=== PATIENT | male | born 1965 | race American Indian/Alaskan Native ===

== ENCOUNTER 2019-11-19 11:06 | Emergency (ER) | payer SELFPAY ==
[2019-11-19] MEDS ORDERED: ASPIRIN 81 MG TAB CHEW PO ONE (12:10)
[2019-11-19] MEDS ORDERED: cloNIDine 0.1 MG TAB PO ONE (12:26)
--- NOTE | 2019-11-19 12:31 | Emergency Department Report ---
<DOUGLAS SCHNEIDER - Last Filed: 11/19/19 16:33> ED Chest Pain HPI - General Chief Complaint: Chest Pain Stated Complaint: CP/HEADACHE Time Seen by Provider: 11/19/19 12:10 - Related Data Previous Rx's Medication Instructions Recorded Last Taken Type amLODIPine 10 mg PO DAILY #30 tab 11/19/19 Unknown Rx Allergies Allergy/AdvReac Type Severity Reaction Status Date / Time No Known Allergies Allergy Unverified 11/19/19 11:10 ED Past Medical Hx - Medications Home Medications: Home Medications Medication Instructions Recorded Confirmed Last Taken Type amLODIPine 10 mg PO DAILY #30 tab 11/19/19 Unknown Rx ED Course - Reevaluation(s) Reevaluation #1: 11/19/19 16:33 Patient's repeat potassium of greater than 3. Patient is now stable for discharge. ED Medical Decision Making - Lab Data Result diagrams: 11/19/19 12:15 11/19/19 15:38 ED Disposition Clinical Impression: Chest pain, Malignant hypertension, Acute hypokalemia Disposition: DC-01 TO HOME OR SELFCARE Is pt being admited?: No Does the pt Need Aspirin: No Condition: Stable Instructions: Chest Pain (ED), Hypertension (ED) Prescriptions: amLODIPine 10 mg PO DAILY #30 tab Referrals: PRIMARY CARE, [Primary Care Provider] - 3-5 Days [facility] [Provider Group] - 3-5 Days Time of Disposition: 16:34 <MIKAYLA DECKER - Last Filed: 11/20/19 12:04> ED Chest Pain HPI - General Source: patient Mode of arrival: Ambulatory Limitations: No Limitations - History of Present Illness Initial Comments: Patient is 53 years old male with history of hypertension, noncompliant with his medication. Patient stated that he recently moved from [place] and he does not have a primary care physician here yet. Patient presented to the ER complaining of left-sided chest pain started probably 4 to 5 days ago. Patient stated that his chest pain is mainly at night and when he checked his blood pressure to be high. He also complaining of headache however he denied any neck pain, weakness numbness or tingling sensation. No bowel or bladder incontinence. No ataxia, visual abnormalities or speech problem. MD Complaint: chest pain -: days(s) (3) Onset: during rest Pain Location: substernal Pain Radiation: none Severity: moderate Quality: aching Consistency: intermittent Heart Score - HEART Score History: Slightly suspicious EKG: Non-specific Age: 45-65 Risk factors: 1-2 risk factors Troponin: < normal limit HEART Score: 3 - Critical Actions Critical Actions: 0-3 pts:0.9-1.7%risk of adverse cardiac event.Candidate for discharge ED Review of Systems ROS: Stated complaint: CP/HEADACHE Other details as noted in HPI Comment: All other systems reviewed and negative Constitutional: denies: chills, fever Respiratory: denies: cough, shortness of breath, SOB with exertion Cardiovascular: chest pain Gastrointestinal: denies: abdominal pain, nausea, vomiting, diarrhea, constipation, hematemesis, melena, hematochezia Musculoskeletal: denies: back pain Neurological: denies: headache, weakness, numbness, paresthesias, confusion, abnormal gait, vertigo ED Past Medical Hx - Past Medical History Previous Medical History?: Yes Hx Hypertension: Yes - Surgical History Past Surgical History?: No - Social History Smoking Status: Never Smoker Substance Use Type: None ED Physical Exam - General Limitations: No Limitations General appearance: alert, in no apparent distress - Head Head exam: Present: atraumatic, normocephalic, normal inspection - Eye Eye exam: Present: normal appearance - ENT ENT exam: Present: normal exam, normal orophraynx, mucous membranes moist, TM's normal bilaterally - Neck Neck exam: Present: normal inspection, full ROM. Absent: tenderness, meningismus, lymphadenopathy, thyromegaly - Respiratory Respiratory exam: Present: normal lung sounds bilaterally - Cardiovascular Cardiovascular Exam: Present: regular rate, normal rhythm, normal heart sounds - GI/Abdominal GI/Abdominal exam: Present: soft, normal bowel sounds. Absent: distended, tenderness, guarding, rebound, rigid, organomegaly, mass, bruit, pulsatile mass, hernia - Extremities Exam Extremities exam: Present: normal inspection, full ROM, normal capillary refill. Absent: tenderness, pedal edema, joint swelling, calf tenderness - Back Exam Back exam: Present: normal inspection, full ROM. Absent: CVA tenderness (R), CVA tenderness (L) - Neurological Exam Neurological exam: Present: alert, oriented X3, CN II-XII intact, normal gait, reflexes normal. Absent: motor sensory deficit - Psychiatric Psychiatric exam: Present: normal mood - Skin Skin exam: Present: warm, intact, normal color ED Course Vital Signs 11/19/19 11/19/19 11/19/19 12:06 15:35 16:41 Pulse Rate 84 85 Respiratory 16 16 16 Rate Blood Pressure 181/117 173/112 165/105 [Left] O2 Sat by Pulse 96 96 96 Oximetry YONIS score - Yonis Score Age > 65: (0) No Aspirin use within the Past 7 Days: (0) No 3 or more CAD Risk Factors: (0) No 2 or more Angina events in past 24 hrs: (0) No Known CAD with more than 50% Stenosis: (0) No Elevated Cardiac Markers: (0) No ST Deviation Greater than 0.5mm: (0) No YONIS Score: 0 ED Medical Decision Making - Lab Data Result diagrams: 11/19/19 12:15 11/19/19 15:38 - EKG Data -: EKG Interpreted by Me EKG shows normal: sinus rhythm Rate: normal - EKG Data Interpretation: no acute changes - Radiology Data Radiology results: report reviewed - Medical Decision Making Patient is 53 years old male with history of hypertension, noncompliant with his medication. Patient stated that he recently moved from [place] and he does not have a primary care physician here yet. Patient presented to the ER complaining of left-sided chest pain started probably 4 to 5 days ago. Patient stated that his chest pain is mainly at night and when he checked his blood pressure to be high. He also complaining of headache however he denied any neck pain, weakness numbness or tingling sensation. No bowel or bladder incontinence. No ataxia, visual abnormalities or speech problem. EKG showed normal sinus rhythm no ST elevation or depression. Labs reviewed and is unremarkable except for potassium of 2.8 replaced with potassium chloride 20 mEq IV and also patient received 40 mEq of K. Dur. Patient blood pressure was 174/118. Patient received clonidine 0.2 mg which improved his blood pressure significantly. Patient stated that his headache and chest pain completely resolved. Patient stated that he was taking amlodipine 10 mg but he ran out of his medication. Patient given prescription for amlodipine and also [facility] for follow-up. Patient advised to return to the ER if he develop any new symptoms. Critical care attestation.: If time is entered above; I have spent that time in minutes in the direct care of this critically ill patient, excluding procedure time. ED Disposition Is pt being admited?: No
[2019-11-19 12:33] LABS: Basophils % (Auto) 0.4 % (0.0-1.8); Eosinophils # (Auto) 0.3 K/mm3 (0.0-0.4); Eosinophils % (Auto) 6.4 % (0.0-4.3); Hematocrit 38.3 % (35.5-45.6); Hemoglobin 13.3 gm/dl (11.8-15.2); Lymphocytes # (Auto) 1.4 K/mm3 (1.2-5.4); Lymphocytes % (Auto) 31.5 % (13.4-35.0); Mean Corpuscular HGB Conc 35 % (32-34); Mean Corpuscular Volume 94 fl (84-94); Monocytes # (Auto) 0.4 K/mm3 (0.0-0.8); Monocytes % (Auto) 7.8 % (0.0-7.3); Platelet Count 239 K/mm3 (140-440); Red Blood Count 4.06 M/mm3 (3.65-5.03)
[2019-11-19 12:43] LABS: INR 0.96 (0.87-1.13)
[2019-11-19 12:44] LABS: Partial Thromboplastin Time 26.5 Sec. (24.2-36.6)
[2019-11-19 12:52] LABS: BUN/Creatinine Ratio 13; Blood Urea Nitrogen 20 mg/dL (9-20); Calcium 9.4 mg/dL (8.4-10.2); Hemolysis Index 7
[2019-11-19] MEDS ORDERED: POTASSIUM CHLORIDE ER 20 MEQ TAB PO ONE (13:04)
--- NOTE | 2019-11-19 13:05 | XRay Report ---
CHEST 1 VIEW INDICATION / CLINICAL INFORMATION: Chest Pain. COMPARISON: None available. FINDINGS: SUPPORT DEVICES: None. HEART / MEDIASTINUM: No significant abnormality. LUNGS / PLEURA: No significant pulmonary or pleural abnormality. No pneumothorax. ADDITIONAL FINDINGS: No significant additional findings. IMPRESSION: 1. No acute findings. Signer Name: Herb Franz MD Signed: 11/19/2019 1:01 PM Workstation Name: [id number]
[2019-11-19] MEDS ORDERED: POTASSIUM CHLORIDE 10 MEQ 20 MEQ/200 ML BAG IV ONE (13:14)
[2019-11-19] MEDS: POTASSIUM CHLORIDE 10 MEQ 10 MEQ/100 ML BAG IV SCH ×2 (13:37→15:33)
[2019-11-19] MEDS ORDERED: hydrALAZINE 20 MG/1 ML INJ IV ONE (15:40)
[2019-11-19 16:42] VITALS: BP 165/105
== END 2019-11-19 17:23 | disposition home or self-care (01) ==
LOC: ED 11:06
DX: R07.89 Other chest pain (principal); I10 Essential (primary) hypertension
CPT/HCPCS: 36415; 71045; 80048; 84132; 84484; 85025; 85610; 85730; 93005; 96365; 96366; 96375; 99284; J3480

== ENCOUNTER 2020-01-14 14:28 | Emergency (ER) | payer OTHER ==
[2020-01-14] MEDS ORDERED: ASPIRIN 325 MG TAB PO ONE (14:56)
[2020-01-14] MEDS ORDERED: POTASSIUM CHLORIDE ER 20 MEQ TAB PO ONE (15:05)
[2020-01-14 15:18] LABS: Basophils # (Auto) 0.1 K/mm3 (0.0-0.1); Basophils % (Auto) 1.4 % (0.0-1.8); Eosinophils # (Auto) 0.1 K/mm3 (0.0-0.4); Eosinophils % (Auto) 1.2 % (0.0-4.3); Hematocrit 39.5 % (35.5-45.6); Hemoglobin 13.7 gm/dl (11.8-15.2); Lymphocytes # (Auto) 1.4 K/mm3 (1.2-5.4); Lymphocytes % (Auto) 25.6 % (13.4-35.0); Mean Corpuscular HGB Conc 35 % (32-34); Mean Corpuscular Volume 94 fl (84-94); Monocytes # (Auto) 0.5 K/mm3 (0.0-0.8); Monocytes % (Auto) 9.1 % (0.0-7.3); Platelet Count 246 K/mm3 (140-440); Red Blood Count 4.18 M/mm3 (3.65-5.03); Red Cell Distribution Width 12.9 % (13.2-15.2)
[2020-01-14 15:28] LABS: INR 0.97 (0.87-1.13)
[2020-01-14 15:29] LABS: Partial Thromboplastin Time 26.5 Sec. (24.2-36.6)
--- NOTE | 2020-01-14 15:37 | Emergency Department Report ---
ED Chest Pain HPI - General Chief Complaint: Chest Pain Stated Complaint: HYPERTENSION/LOW POTASSIUM Time Seen by Provider: 01/14/20 15:02 Source: patient, EMS Mode of arrival: Stretcher Limitations: No Limitations - History of Present Illness Initial Comments: This is a 54-year-old male who is an inmate at [facility]. He states he has had intermittent chest pain since . He states on night it was associated with sweating nausea and shortness of breath. Chest pain has been sharp and intermittent. Sometimes it radiates to his back and bilaterally to his buttocks. He states he has had chest pain before but not like this. He has been given 3 pills at the senior care 1 of which is amlodipine another Tylenol and the third perhaps a diuretic. He states he has been on lisinopril in the past but he was told to stop taking it. He denies a prior history of venous thromboembolism or coronary artery disease. He is not having active chest pain at the time of my encounter. The patient was sent to this facility for evaluation of hypokalemia per se. The initial report did not involve chest pain. However he presented to the emergency department with severely uncontrolled hypertension and a complaint of chest pain as above. Patient states that on December 23 in [facility] he had next surgery. I believe he probably had an anterior cervical fusion as he states he had an incision on his neck and posteriorly. MD Complaint: chest pain -: Gradual, days(s) Onset: during rest Pain Location: substernal Pain Radiation: other (As above described) Severity: moderate Quality: sharp Consistency: intermittent Improves With: nothing Worsens With: nothing re: nausea, diaphoresis, dyspnea, other (Above symptoms on but not since) Other Symptoms: denies: cough, fever, syncope Treatments Prior to Arrival: other (As above indicated) Aspirin use within the Past 7 Days: (1) Yes - Related Data Home Medications Medication Instructions Recorded Confirmed Last Taken Acetaminophen [Non-Aspirin Pain 500 mg PO BID 01/14/20 01/14/20 Unknown Relief] Aspirin [Aspirin BABY CHEW TAB] 81 mg PO QAM 01/14/20 01/14/20 Unknown amLODIPine 5 mg PO DAILY 01/14/20 01/14/20 Unknown Allergies Allergy/AdvReac Type Severity Reaction Status Date / Time No Known Allergies Allergy Verified 01/14/20 14:50 Heart Score - HEART Score History: Moderately suspicious EKG: Non-specific Age: 45-65 Risk factors: 1-2 risk factors Troponin: < normal limit HEART Score: 4 - Critical Actions Critical Actions: 4-6 pts:12-16.6% risk of adverse cardiac event. Should be admitted ED Review of Systems ROS: Stated complaint: HYPERTENSION/LOW POTASSIUM Other details as noted in HPI Constitutional: denies: chills, fever Eyes: denies: eye pain, eye discharge, vision change ENT: denies: ear pain, throat pain Respiratory: shortness of breath (As per HPI). denies: cough, wheezing Cardiovascular: chest pain. denies: palpitations Endocrine: no symptoms reported Gastrointestinal: nausea (As per HPI). denies: abdominal pain, diarrhea Genitourinary: denies: urgency, dysuria Musculoskeletal: denies: back pain, joint swelling, arthralgia Skin: denies: rash, lesions Neurological: denies: headache, weakness, paresthesias Psychiatric: denies: anxiety, depression Hematological/Lymphatic: denies: easy bleeding, easy bruising ED Past Medical Hx - Past Medical History Hx Hypertension: Yes - Surgical History Additional Surgical History: NECK AND BACK SURGERY - Social History Smoking Status: Never Smoker Substance Use Type: None - Medications Home Medications: Home Medications Medication Instructions Recorded Confirmed Last Taken Type Acetaminophen [Non-Aspirin Pain 500 mg PO BID 01/14/20 01/14/20 Unknown History Relief] Aspirin [Aspirin BABY CHEW TAB] 81 mg PO QAM 01/14/20 01/14/20 Unknown History amLODIPine 5 mg PO DAILY 01/14/20 01/14/20 Unknown History ED Physical Exam - General Limitations: No Limitations General appearance: alert, in no apparent distress - Head Head exam: Present: atraumatic, normocephalic - Eye Eye exam: Present: normal appearance. Absent: scleral icterus - ENT ENT exam: Present: mucous membranes moist - Neck Neck exam: Present: normal inspection - Respiratory Respiratory exam: Present: normal lung sounds bilaterally. Absent: respiratory distress - Cardiovascular Cardiovascular Exam: Present: regular rate, normal rhythm. Absent: systolic murmur, diastolic murmur, rubs, gallop - GI/Abdominal GI/Abdominal exam: Present: soft, normal bowel sounds. Absent: distended, tenderness, guarding, rebound, rigid - Rectal Rectal exam: Present: deferred - Extremities Exam Extremities exam: Present: normal inspection. Absent: calf tenderness - Back Exam Back exam: Present: normal inspection - Neurological Exam Neurological exam: Present: alert, oriented X3, CN II-XII intact. Absent: motor sensory deficit - Psychiatric Psychiatric exam: Present: normal affect, normal mood - Skin Skin exam: Present: warm, dry, intact, normal color. Absent: rash - Other Other exam information: Strong dorsalis pedis and posterior pulses symmetrical bilaterally ED Course Vital Signs 01/14/20 01/14/20 14:30 16:05 Temperature 98.9 F Pulse Rate 99 H 98 H Respiratory 24 Rate Blood Pressure 192/127 164/114 O2 Sat by Pulse 98 Oximetry - Reevaluation(s) Reevaluation #1: Discussed with hospitalist. I reviewed the patient's CT. His aorta looks fine to be radiologist is still pending. Blood pressure is responding to labetalol. Patient was given oral potassium and K riders now ordered. He was started on fluid. He was found to have rhabdo with a CK of about 1800 and troponin undetectable. He has not been complaining of active chest pain in the emergency department. 01/14/20 16:34 01/14/20 16:35 SHARON score - Sharon Score Age > 65: (0) No Aspirin use within the Past 7 Days: (0) No 3 or more CAD Risk Factors: (0) No 2 or more Angina events in past 24 hrs: (0) No Known CAD with more than 50% Stenosis: (0) No Elevated Cardiac Markers: (0) No ST Deviation Greater than 0.5mm: (0) No SHARON Score: 0 ED Medical Decision Making - Lab Data Result diagrams: 01/14/20 15:02 01/14/20 15:02 Laboratory Results - last 24 hr 01/14/20 01/14/20 01/14/20 15:02 15:02 15:07 WBC 5.5 RBC 4.18 Hgb 13.7 Hct 39.5 MCV 94 MCH 33 H MCHC 35 H RDW 12.9 L Plt Count 246 Lymph % (Auto) 25.6 [place] % (Auto) 9.1 H Eos % (Auto) 1.2 Baso % (Auto) 1.4 Lymph # (Auto) 1.4 [place] # (Auto) 0.5 Eos # (Auto) 0.1 Baso # (Auto) 0.1 Seg Neutrophils % 62.7 Seg Neutrophils # 3.5 PT 13.1 INR 0.97 APTT 26.5 Carbon Dioxide 26 Anion Gap 19 BUN 21 H Creatinine 1.8 H Estimated GFR 48 BUN/Creatinine Ratio 12 Glucose 109 H Calcium 9.5 Magnesium Total Bilirubin Direct Bilirubin Indirect Bilirubin AST ALT Alkaline Phosphatase Total Creatine Kinase CK-MB (CK-2) CK-MB (CK-2) Rel Index Troponin T < 0.010 NT-Pro-B Natriuret Pep Total Protein Albumin Albumin/Globulin Ratio 01/14/20 15:07 WBC RBC Hgb Hct MCV MCH MCHC RDW Plt Count Lymph % (Auto) [place] % (Auto) Eos % (Auto) Baso % (Auto) Lymph # (Auto) [place] # (Auto) Eos # (Auto) Baso # (Auto) Seg Neutrophils % Seg Neutrophils # PT INR APTT Carbon Dioxide Anion Gap BUN Creatinine Estimated GFR BUN/Creatinine Ratio Glucose Calcium Magnesium 2.10 Total Bilirubin 0.40 Direct Bilirubin < 0.2 Indirect Bilirubin 0.2 AST 41 H ALT 21 Alkaline Phosphatase 105 Total Creatine Kinase 1881 H CK-MB (CK-2) 6.5 H CK-MB (CK-2) Rel Index 0.3 Troponin T NT-Pro-B Natriuret Pep 121.5 Total Protein 7.5 Albumin 4.6 Albumin/Globulin Ratio 1.6 - EKG Data -: EKG Interpreted by Nc EKG shows normal: sinus rhythm, axis (Normal) Rate: normal - EKG Data Interpretation: other (Patient probably has a coalescence of a U wave on T wave secondary to hyperkalemia.) Critical Care Time: Yes Critical care time in (mins) excluding proc time.: 60 Critical care attestation.: If time is entered above; I have spent that time in minutes in the direct care of this critically ill patient, excluding procedure time. ED Disposition Clinical Impression: Malignant hypertension, Hypokalemia Chest pain Qualifiers: Chest pain type: unspecified Qualified Code(s): R07.9 - Chest pain, unspecified Chronic renal insufficiency, stage III (moderate) Qualifiers: Chronic kidney disease stage 3 subtype: unspecified whether 3a or 3b Qualified Code(s): N18.30 - Chronic kidney disease, stage 3 unspecified Rhabdomyolysis Qualifiers: Rhabdomyolysis type: non-traumatic Qualified Code(s): M62.82 - Rhabdomyolysis Disposition: DC-09 OP ADMIT IP TO THIS HOSP Is pt being admited?: Yes Does the pt Need Aspirin: Yes Condition: Stable Instructions: Hypertension (ED), Chest Pain (ED) Referrals: PRIMARY CARE, [Primary Care Provider] - 3-5 Days Time of Disposition: 16:37
[2020-01-14 15:39] LABS: BUN/Creatinine Ratio 12; Blood Urea Nitrogen 21 mg/dL (9-20); Calcium 9.5 mg/dL (8.4-10.2); Hemolysis Index 7
[2020-01-14 15:41] LABS: Creatine Kinase MB 6.5 ng/mL (0.0-4.0)
[2020-01-14 15:43] LABS: Alanine Aminotransferase 21 units/L (7-56); Albumin 4.6 g/dL (3.9-5)
[2020-01-14 15:49] LABS: Bilirubin,Direct < 0.2 mg/dL (0-0.2)
--- NOTE | 2020-01-14 15:56 | XRay Report ---
CHEST 1 VIEW INDICATION / CLINICAL INFORMATION: Chest Pain. COMPARISON: 11/19/2019 FINDINGS: SUPPORT DEVICES: None. HEART / MEDIASTINUM: No significant abnormality. LUNGS / PLEURA: No significant pulmonary or pleural abnormality. No pneumothorax. ADDITIONAL FINDINGS: No significant additional findings. IMPRESSION: No acute disease or interval change from 11/19/2019 Signer Name: Corey Loco MD FACR Signed: 01/14/2020 3:52 PM Workstation Name: [id number]
[2020-01-14] MEDS ORDERED: SODIUM CHLORIDE 0.9% 1000 ML 1,000 ML IV ONE (16:31)
--- NOTE | 2020-01-14 16:36 | Cat Scan Report ---
CTA CHEST WITH IV CONTRAST INDICATION / CLINICAL INFORMATION: Severe HTN CP to back. TECHNIQUE: Axial CT images were obtained through the chest after injection of IV contrast. 3 plane MIP and/or 3D reconstructions were produced. All CT scans at this location are performed using CT dose reduction f or ALARA by means of automated exposure control. COMPARISON: None available. FINDINGS: PULMONARY ARTERIES: No pulmonary emboli. THORACIC AORTA: Prominent slightly ectatic thoracic aorta without evidence of aneurysm or dissection. HEART: No significant abnormality. CORONARY ARTERIES: No significant calcification. PLEURA: No pleural effusion. No pneumothorax. LYMPH NODES: No significant adenopathy. LUNGS: No acute air space or interstitial disease. ADDITIONAL FINDINGS: None.. SKELETAL STRUCTURES: No significant osseous abnormality. IMPRESSION: 1. No CT evidence for pulmonary embolism. 2. No evidence of thoracic aortic dissection or aneurysm Signer Name: Asaf Padilla MD Signed: 01/14/2020 4:32 PM Workstation Name: [id number]
[2020-01-14] MEDS ORDERED: SODIUM CHLORIDE 0.9% 1000 ML 1,000 ML ONE (16:39)
[2020-01-14] MEDS: POTASSIUM CHLORIDE 10 MEQ 10 MEQ/100 ML BAG IV SCH ×4 (16:43→21:12)
--- NOTE | 2020-01-14 16:43 | Cat Scan Report ---
CLINICAL DATA: Severe HTN CP to back TECHNICAL DATA: Following dynamic intravenous nonionic contrast infusion, multiple axial helical overlapped CT with multiplanar reconstructions were obtained. All CT data was transferred to a 3D workstation for multi planar reformation and 3D reconstruction under concurrent physician supervision. All CT scans at this location are performed using CT dose reduction for ALARA by means of automated exposure control. FINDINGS: CTA ABDOMEN PELVIS: The celiac axis is normal. The origin of the superior mesenteric artery is normal. There are single b ilateral renal arteries, which are normal. The infrarenal abdominal aorta demonstrates atheroscleroti c plaques. No evidence of stenosis or abdominal aortic aneurysm. The bifurcation into the common iliac is well delineated with atherosclerotic plaques present without evidence of narrowing. The bifurcation into the internal and external iliac arteries demonstrate pat ency without evidence of a hemodynamically significant lesion. CT ABDOMEN PELVIS: Noncontrast imaging of the upper abdomen fails to demonstrate abnormal calcifications, cholelithiasis , or nephrolithiasis. No focal parenchymal abnormalities are identified. The gallbladder, pancreas, and kidneys are well i prasanth. There is a heterogeneous solid mass left kidney measuring 4.37 cm. Right adrenal mass is prese nt measuring 2.3 cm in diameter. A small left adrenal nodule is present measuring 1.2 cm There is no evidence of biliary ductal dilatation. The portal and hepatic veins are patent. No definite intraab dominal or retroperitoneal lymphadenopathy is identified. The bowel gas pattern is nonspecific and n onobstructive. There is no evidence of free intraperitoneal air or free intraperitoneal fluid. CT through the pelvis reveals the bladder to be well distended and smooth in contour. There is no ev idence of free air or free fluid within the pelvis. No focal soft tissue mass lesions or lymphadenop athy identified. IMPRESSION: 1. Left renal mass worrisome for a neoplastic process 2. Right adrenal gland lesion worrisome for a neoplastic process Signer Name: Asaf Padilla MD Signed: 01/14/2020 4:38 PM Workstation Name: [id number]
[2020-01-14 16:50] LABS: Bilirubin,Urine NEG (Negative); Blood,Urine SM (Negative); Color,Urine Colorless (Yellow); Hyaline Casts,Urine 1 /LPF; Protein,Urine <15 mg/dL mg/dL (Negative); Urobilinogen,Urine < 2.0 mg/dL (<2.0)
[2020-01-14] MEDS ORDERED: NITROGLYCERIN 2% OINT 1 GM TP ONE (17:47)
--- NOTE | 2020-01-14 18:16 | Event Note ---
Date: 01/14/20 54-year-old male presents to ED for evaluation of atypical chest pain. Patient seen and evaluated in the emergency department. Lab and imaging studies reviewed. Patient treated" with chest pain protocol. Cardiac enzymes EKG and telemetry monitoring were unremarkable and not indicative of acute ischemia. Patient treated with CT of the chest abdomen and pelvis. Patient found to have incidental finding of left renal mass. Patient acknowledges knowledge of renal mass mass. Patient found the mass may be malignant in nature and requires f urther outpatient follow-up. Patient medically optimized and back to usual state of health. Patient discharged back to custody of law enforcement instructed to follow-up with primary care physician within 3 to 5 days with blood pressure log. Patient instructed to follow-up with cardiology as outpatient for further evaluation. ED Physical Exam - General Limitations: No Limitations General appearance: alert, in no apparent distress - Head Head exam: Present: atraumatic, normocephalic - Eye Eye exam: Present: normal appearance. Absent: scleral icterus - ENT ENT exam: Present: mucous membranes moist - Neck Neck exam: Present: normal inspection - Respiratory Respiratory exam: Present: normal lung sounds bilaterally. Absent: respiratory distress - Cardiovascular Cardiovascular Exam: Present: regular rate, normal rhythm. Absent: systolic murmur, diastolic murmur, rubs, gallop - GI/Abdominal GI/Abdominal exam: Present: soft, normal bowel sounds. Absent: distended, tenderness, guarding, rebound, rigid - Rectal Rectal exam: Present: deferred - Extremities Exam Extremities exam: Present: normal inspection. Absent: calf tenderness - Back Exam Back exam: Present: normal inspection - Neurological Exam Neurological exam: Present: alert, oriented X3, CN II-XII intact. Absent: motor sensory deficit - Psychiatric Psychiatric exam: Present: normal affect, normal mood - Skin Skin exam: Present: warm, dry, intact, normal color. Absent: rash - Other Other exam information: Strong dorsalis pedis and posterior pulses symmetrical bilaterally
[2020-01-14] MEDS ORDERED: amLODIPine 5 MG TAB PO ONE (19:00)
[2020-01-14] MEDS ORDERED: hydroCHLOROthiazide 25 MG TAB PO ONE (19:00)
[2020-01-14] MEDS ORDERED: MAGNESIUM SULFATE 1 GM in SODIUM CHLORIDE 0.9% 50 ML IV ONE (19:00)
[2020-01-14 23:19] VITALS: BP 146/98
== END 2020-01-14 23:00 | disposition admitted as inpatient to this hospital (09) ==
LOC: ED 14:28
DX: I12.9 Hypertensive chronic kidney disease with stage 1 through stage 4 chronic kidney disease, or unspecified chronic kidney disease (principal); N18.30 Chronic kidney disease, stage 3 unspecified; M62.82 Rhabdomyolysis; E87.6 Hypokalemia; R07.89 Other chest pain; Z98.890 Other specified postprocedural states; Z79.899 Other long term (current) drug therapy
CPT/HCPCS: 36415; 71045; 71275; 75635; 80048; 80076; 81001; 82550; 82553; 83735; 83880; 84484; 85025; 85610; 85730; 93005; 96365; 96366; 96368; 96375; 96376; 99285; J3475; J3480; J7030; Q9967

== ENCOUNTER 2020-07-04 11:09 | Emergency (ER) | payer BC, OTHER ==
[2020-07-04 11:22] VITALS: BP 136/92
--- NOTE | 2020-07-04 12:24 | Emergency Department Report ---
ED General Adult HPI - General Chief complaint: Headache Stated complaint: HEADACHE/COVID EXPOSURE Time Seen by Provider: 07/04/20 12:21 Source: patient Mode of arrival: Ambulatory Limitations: No Limitations - History of Present Illness Initial comments: 54-year-old male patient with history of hypertension presents to the emergency department with complaints of sudden onset occipital headache with associated neck stiffness starting 1 week ago. Patient states the headache reached maximum intensity on the same day the headache began. For the last few days, the pain has decreased in intensity, and only occurs intermittently. No preceding fall, trauma, or injury. Patient is not anticoagulated. He has been taking Tylenol for the headache with some relief. He does endorse known exposure to COVID-19 and he has been in quarantine for the last 10 days. He was reluctant to come to the emergency department to have his headache evaluated because of COVID-19 exposure. Denies seizure, syncope, vision changes, rash, chest pain, shortness of breath, paresthesias, numbness, nausea, vomiting. Denies all other complaints at this time. - Related Data Home Medications Medication Instructions Recorded Confirmed Last Taken Acetaminophen [Non-Aspirin Pain 500 mg PO BID 01/14/20 01/14/20 Unknown Relief] Aspirin [Aspirin BABY CHEW TAB] 81 mg PO QAM 01/14/20 01/14/20 Unknown amLODIPine 5 mg PO DAILY 01/14/20 01/14/20 Unknown Previous Rx's Medication Instructions Recorded Last Taken Type amLODIPine 10 mg PO DAILY #30 tab 01/14/20 Unknown Rx hydroCHLOROthiazide [HCTZ] 25 mg PO ONCE #30 tablet 01/14/20 Unknown Rx Allergies Allergy/AdvReac Type Severity Reaction Status Date / Time No Known Allergies Allergy Verified 01/14/20 14:50 ED Review of Systems ROS: Stated complaint: HEADACHE/COVID EXPOSURE Other details as noted in HPI Other: GENERAL: Negative for fever, chills, weight change, anorexia, fatigue. ENT: Negative for ear pain, difficulty hearing, sore throat, nasal congestion, epistaxis. CARDIOVASCULAR: Negative for chest pain, palpitations, lower extremity swelling. PULMONARY: Negative for cough, dyspnea, wheezing, orthopnea, cyanosis. GASTROINTESTINAL: Negative for abdominal pain, nausea, vomiting, diarrhea, constipation. MUSCULOSKELETAL: Positive for neck stiffness. NEUROLOGICAL: Positive for headache. INTEGUMENTARY: Negative for erythema, rash, diaphoresis, laceration, ecchymosis. HEMATOLOGICAL: Negative for hemoptysis, hematemesis, hematochezia, hematuria. PSYCHIATRIC: Negative for hallucinations, suicidal ideation, homicidal ideation, anxiety, depression. ED Past Medical Hx - Past Medical History Hx Hypertension: Yes - Surgical History Additional Surgical History: NECK AND BACK SURGERY - Social History Smoking Status: Never Smoker Substance Use Type: None - Medications Home Medications: Home Medications Medication Instructions Recorded Confirmed Last Taken Type Acetaminophen [Non-Aspirin Pain 500 mg PO BID 01/14/20 01/14/20 Unknown History Relief] Aspirin [Aspirin BABY CHEW TAB] 81 mg PO QAM 01/14/20 01/14/20 Unknown History amLODIPine 5 mg PO DAILY 01/14/20 01/14/20 Unknown History amLODIPine 10 mg PO DAILY #30 tab 01/14/20 Unknown Rx hydroCHLOROthiazide [HCTZ] 25 mg PO ONCE #30 tablet 01/14/20 Unknown Rx ED Physical Exam - General Limitations: No Limitations - Other Other exam information: General: Awake and alert. No acute distress. Head: Atraumatic, normocephalic. Eyes: EOMI. Pupils are equal and round. Normal sclera and conjunctiva. ENT: Oral mucosa is moist. Normal pharyngeal exam. Neck: Supple. No lymphadenopathy. Pulmonary: No respiratory distress. Clear to auscultation bilaterally. Cardiac: Regular rate and rhythm. Pulses are palpable and equal bilaterally. No lower extremity cyanosis or edema. Skin: Warm and dry. No rashes. Abdomen: Soft, non-tender, non-protuberant. No guarding, rigidity, or rebound. Bowel sounds are normal. No organomegaly or masses noted. Back: Normal alignment. No CVA tenderness. Extremities: Symmetrical. Full range of motion intact. Neurological: Alert and oriented, appropriately interactive, no focal deficits. GCS 15. Strength and sensation intact throughout. Cranial nerves II-XII grossly intact. Normal cerebellar finger-nose exam. Ambulatory without assistance. Psych: Cooperative. Appropriate mood and affect. Speech is evenly metered. Thoughts are logically construed. ED Course Vital Signs 07/04/20 11:18 Temperature 97.9 F Pulse Rate 94 H Respiratory 16 Rate Blood Pressure 136/92 O2 Sat by Pulse 98 Oximetry ED Medical Decision Making - Medical Decision Making Differential diagnosis including but not limited to: tension headache, migraine headache, cluster headache, subarachnoid hemorrhage, space-occupying lesion, intracranial hemorrhage, cervical strain/sprain Patient presents to the emergency department with complaints of nontraumatic headache for over 1 week. Risk factors for subarachnoid hemorrhage include: age, history of hypertension, sudden onset headache reaching maximal intensity within hours of onset, and associated neck stiffness. These symptoms have la rgely resolved; he he was sent to the emergency department to obtain written documentation of his 10-day quarantine. He was reluctant to come to the emergency department to have the symptoms evaluated sooner because of the COVID- 19 pandemic. Vital signs are stable. Physical exam is unremarkable. Neurological exam is nonfocal. However, he is not an appropriate candidate for risk stratification using the [place] subarachnoid hemorrhage rule due to the above risk factors. Therefore, CT head was obtained for further evaluation. On evaluation, patient remains stable. Repeat neurological exam remains nonfocal. CT head without acute process. It was explained to the patient that CT of the head is not 100% sensitive for detecting subarachnoid hemorrhage >6 hours after onset of symptoms, and a lumbar puncture is necessary to definitively rule out this diagnosis. Shared decision making has been implemented and patient has politely refused lumbar puncture. The risks and benefits of performing lumbar puncture as well as bypassing lumbar puncture have both been discussed. The patients ability to make an informed decision has been assessed and it has been determined that the patient has the capacity to comprehend the information about their current medical condition and appreciate the impact of the disease and the consequence of various options for treatment. The patient possesses the ability to evaluate all treatment options, compare the risks and benefits of each option, communicate this choice in a consistent manner over time, and is able to make choices that are not irrational. The patient has had an opportunity to express his preferences and goals of care. Patient was given the opportunity to ask questions, all of which were satisfactorily answered. Patient will be discharged home in stable condition with referral to primary care provider for close outpatient follow-up. Strict return precautions provided. Critical care attestation.: If time is entered above; I have spent that time in minutes in the direct care of this critically ill patient, excluding procedure time. ED Disposition Clinical Impression: Occipital headache Disposition: DC-01 TO HOME OR SELFCARE Is pt being admited?: No Does the pt Need Aspirin: No Condition: Stable Instructions: Cervicogenic Headache Additional Instructions: Take Tylenol every 4 hours as needed for pain. Follow-up with your primary care provider this week. Call tomorrow to schedule an appointment. Return to the emergency department immediately for new or worsening symptoms. Specifically, return to the emergency department immediately for fever, increased neck stiffness, worsening headache, nausea/vomiting, numbness, tingling, seizures, loss of consciousness, mental status changes, vision melissa ges, or any other concerns. Referrals: ARLET MARK MD [Primary Care Provider] - 3-5 Days Forms: Work/School Release Form(ED) Time of Disposition: 13:15
--- NOTE | 2020-07-04 13:08 | Cat Scan Report ---
CT head/brain wo con INDICATION: sudden onset headache x1 week + neck stiffness. TECHNIQUE: Routine CT head. All CT scans at this location are performed using CT dose reduction for A PHILIPP by means of automated exposure control. COMPARISON: None. FINDINGS: Intracranial: Florez-white matter differentiation is maintained. No intracranial hemorrhage. No extra a xial collection. No hydrocephalus. No herniation. Sinuses: Scattered small mucosal retention cysts. Paranasal sinuses and mastoid air cells are essenti ally clear. Orbits: Globes are intact. Calvarium: No acute fracture. IMPRESSION: 1. No acute intracranial abnormality. Signer Name: Cole Menon MD Signed: 07/04/2020 1:03 PM Workstation Name: [id number]
== END 2020-07-04 14:00 | disposition home or self-care (01) ==
LOC: ED 11:09
DX: R51.9 Headache, unspecified (principal); I10 Essential (primary) hypertension; Z79.82 Long term (current) use of aspirin; Z79.899 Other long term (current) drug therapy
CPT/HCPCS: 70450; 99283